=== PATIENT | female | born 1940 | race Caucasian/White ===

== ENCOUNTER → 2017-05-11 | Outpatient (CLI) | payer OTHER, BC ==
--- NOTE | 2017-05-12 16:42 | MRI ---
HISTORY: Lumbar radiculopathy Study: MRI lumbar spine without contrast Comparison: MRI 01/26/2015 Findings: There is chronic roto dextroscoliosis of the lumbar spine which limits evaluation. There is multileve l spondylosis and degenerative disc disease present. There is grade 1 anterolisthesis of L5 on S1. Th ere is multilevel facet arthropathy present. There is [id number] foraminal narrowing suspected at L1-L2 and L2-3 on the right and moderate foraminal stenosis on the left at L5-S1 There is no evide nce of abnormal cord or marrow signal. No edema or evidence of fracture. The conus terminates normall y. Incidental note is made of a large hiatal hernia. IMPRESSION: 1. Chronic rotoscoliosis and multilevel spondylosis. No acute osseous abnormality is identified. Reported By:
== END | disposition home or self-care (01) ==
LOC: RAD 12:50
PROVIDERS: ATTEND Internal Medicine
DX: M51.16 Intervertebral disc disorders with radiculopathy, lumbar region (principal); M47.896 Other spondylosis, lumbar region; M41.86 Other forms of scoliosis, lumbar region
CPT/HCPCS: 72148

== ENCOUNTER 2022-05-15 13:27 | Observation (INO) ==
--- NOTE | 2022-05-15 13:32 | DR.AMS ---
HPI Time Seen Time Seen by Provider: 05/15/22 13:32 Complaint Cheif Complaint Doctors Comments: 82 y/o female brought in by her spouse. Having decreasing po intake, increasing weakness, going on for the past several weeks. Spouse has been taking care of the pt, has to lift her, move her. Pt recently non ambulatory. Not taking much by mouth. No report of fever, chills, cough, congestion, vomiting or diarrhea. Urine with strong odor. PT not offering complaints. Reviewed Nurses Notes Reviewed: Yes Source History Provided: Significant Other Mode of Arrival Mode of Arrival: Wheelchair PMH PMH Past Medical History: Yes Past Medical History: Anemia Past Medical History Comment: CVA, HTN, dyslipidemia, GERD, hiatal hernia, hypothyroidism Surgical History: Unknown Social History Does patient currently use any type of tobacco product: No Alcohol Use: None Do you use any recreational Drugs:: No ROS Review of Systems Constitutional: Malaise and Weakness Eyes: No Symptoms Reported ENTM: No Symptoms Reported Respiratoy: No Symptoms Reported Cardiovascular: No Symptoms Reported Gastrointestinal/Abdominal: No Symptoms Reported Genitourinary: No Symptoms Reported Neurological: No Symptoms Reported Musculoskeletal: No Symptoms Reported Integumentary: No Symptoms Reported Hematologic/Lymphatic: No Symptoms Reported Psychiatric: No Symptoms Reported All Other Systems: Reviewed and Negative PE Vitals Vital Signs: Temp Pulse Resp BP Pulse Ox O2 Del Method 05/15/22 15:45 158 H 41 H 05/15/22 15:31 194/119 05/15/22 15:31 114 H 27 H 05/15/22 15:30 114 H 22 05/15/22 15:15 115 H 13 05/15/22 15:00 154/76 05/15/22 15:00 95 H 19 05/15/22 14:45 153 H 25 H 05/15/22 14:31 152 H 17 05/15/22 14:30 109 H 20 05/15/22 14:15 19 05/15/22 14:30 97 H 16 131/93 99 Room Air 05/15/22 14:00 111 H 28 H 05/15/22 14:00 131/93 05/15/22 13:45 100 H 20 05/15/22 13:35 94 H 21 98 05/15/22 13:33 98.7 F 93 H 24 152/64 98 General General Appearance: Cachectic and Other (+ generalized weakness) Eyes Eye exam: PERRL and EOMI Neck Neck Exam: Normal Inspection Respiratory Respiratory Exam: Normal Lung Sounds Bilat; negative Accessory Muscle Use or Respiratory Distress Cardiovascular Cardiovascular Exam: Regular Rate, Normal Rhythm and Normal Heart Sounds Abdominal Exam Abdominal Exam: Normal Bowel Sounds and Soft; negative Tenderness Neurological Neurological Exam: Other (+ weakness of all exts. No focal deficits. Verbal for nurses, not verbal for MD. ) COURSE Treatment Treatment: 82 y/o female brought in by spouse for evaluation. Very cachectic, has not been eating , drinking. + strong odor of urine. W/u initiated. Pt given IV fluids. 1554 - Na elevated, 149, as well as BUN, both c/w dehydration. U/A cloudy, 2+ ketones, 4+ bld (was a cath specimen), 1+ kemar est, 10-20 RBCs, only 0-2 WBCs, with 4+ bacteria. Will cover with Rocephin for possible UTI, will recommend admission for continued IV hydration for probable dehydration. Discussed with Dr Vides, will admit. ROR Labs Reviewed Laboratory Results Reviewed?: Yes Result Diagrams: 05/15/22 13:50 05/15/22 13:50 Laboratory: WBC 12.1 X10^3/uL (3.6-10.0) H 05/15/22 13:50 RBC 4.13 X10^6/uL (3.5-5.4) 05/15/22 13:50 Hgb 13.4 g/dL (12.0-16.0) 05/15/22 13:50 Hct 39.9 % (36.0-47.0) 05/15/22 13:50 MCV 96.4 fL (80.0-100.0) 05/15/22 13:50 MCH 32.4 pg (27.0-34.0) 05/15/22 13:50 MCHC 33.7 g/dL (33.0-35.0) 05/15/22 13:50 RDW 14.0 % (11.6-16.5) 05/15/22 13:50 Plt Count 199 X10^3/uL (150.0-450.0) 05/15/22 13:50 MPV 7.7 fL (7.4-11.0) 05/15/22 13:50 Neut % (Auto) 82.2 % (42.0-75.0) H 05/15/22 13:50 Lymph % (Auto) 9.1 % (21.0-51.0) L 05/15/22 13:50 [place] % (Auto) 8.3 % (0.0-13.0) 05/15/22 13:50 Eos % (Auto) 0.0 % (0.9-2.9) L 05/15/22 13:50 Baso % (Auto) 0.4 % (0.2-1.0) 05/15/22 13:50 Neut # (Auto) 9.9 x10^3/uL (2.2-4.8) H 05/15/22 13:50 Lymph # (Auto) 1.1 X10^3/uL (1.3-2.9) L 05/15/22 13:50 [place] # (Auto) 1.0 x10^3/uL (0.3-0.8) H 05/15/22 13:50 Eos # (Auto) 0.0 x10^3/uL (0.0-0.2) 05/15/22 13:50 Baso # (Auto) 0.0 X10^3/uL (0.0-0.1) 05/15/22 13:50 Absolute Nucleated RBC 0.0 /100WBC 05/15/22 13:50 Sodium 149 mmol/L (136-145) H 05/15/22 13:50 Corrected Sodium 149 mmol/L (136-145) H 05/15/22 13:50 Potassium 3.5 mmol/L (3.5-5.1) 05/15/22 13:50 Chloride 110 mmol/L (98-107) H 05/15/22 13:50 Carbon Dioxide 30.3 mmol/L (21-32) 05/15/22 13:50 BUN 44 mg/dL (7-18) H 05/15/22 13:50 Creatinine 0.97 mg/dL (0.55-1.02) 05/15/22 13:50 Est GFR (MDRD) Af Amer > 60 (>60) 05/15/22 13:50 Est GFR (MDRD) Non-Af 58 (>60) L 05/15/22 13:50 Glucose 120 mg/dL (65-99) H 05/15/22 13:50 Calcium 9.6 mg/dL (8.5-10.1) 05/15/22 13:50 Corrected Calcium TNP 05/15/22 13:50 Total Bilirubin 0.80 mg/dL (0.2-1.0) 05/15/22 13:50 AST 84 Units/L (15-37) H 05/15/22 13:50 ALT 63 Units/L (12-78) 05/15/22 13:50 Alkaline Phosphatase 98 Units/L (46-116) 05/15/22 13:50 Troponin I High Sens 55.4 ng/L (4.0-60.0) 05/15/22 13:50 Total Protein 7.1 g/dL (6.4-8.2) 05/15/22 13:50 Albumin 3.6 g/dL (3.4-5.0) 05/15/22 13:50 Globulin 3.5 g/dL (2.5-4.5) 05/15/22 13:50 Albumin/Globulin Ratio 1.0 Ratio (1.1-2.1) L 05/15/22 13:50 Lipase 101 Units/L (73-393) 05/15/22 13:50 Specimen Type Catherized urine 05/15/22 14:07 Urine Color Yellow (YELLOW) 05/15/22 14:07 Urine Appearance Cloudy (CLEAR) 05/15/22 14:07 Urine pH 6.0 (5.0 - 8.0) 05/15/22 14:07 Ur Specific [place] 1.030 (1.000-1.030) 05/15/22 14:07 Urine Protein 2+ (NEGATIVE) 05/15/22 14:07 Urine Glucose (UA) Negative (NEGATIVE) 05/15/22 14:07 Urine Ketones 2+ (NEGATIVE) 05/15/22 14:07 Urine Blood 4+ (NEGATIVE) 05/15/22 14:07 Urine Nitrite Negative (NEGATIVE) 05/15/22 14:07 Urine Bilirubin Negative (NEGATIVE) 05/15/22 14:07 Urine Urobilinogen 1+ (NORMAL) 05/15/22 14:07 Ur Leukocyte Esterase 1+ (NEGATIVE) 05/15/22 14:07 Urine RBC 10-20 /HPF (0-3) A 05/15/22 14:07 Urine WBC 0-2 /HPF (0-5) 05/15/22 14:07 Ur Squamous Epith Cells Negative /HPF (NEGATIVE) 05/15/22 14:07 Urine Bacteria 4+ /HPF (NEGATIVE) 05/15/22 14:07 Ur Culture Indicated? Yes/culture set up 05/15/22 14:07 Elevated Na, BUN c/w dehydration. U/A without leukocytes, but concerning for UTI. Opioid Opioid Risk Tool Total: 0 Total Score Risk Category: Low Risk Copyright: [facility] predicting aberrant behaviors Discharge Plan Diagnosis Discharge Problem: Volume depletion, Failure to thrive, Acute UTI Discharge Plan Patient Disposition: ADMITTED INPATIENT Condition: Stable Prescriptions: No Action meloxicam 15 mg tablet 15 mg PO QDAY omeprazole 40 mg capsule,delayed release(DR/EC) 40 mg PO QDAY levothyroxine 125 mcg tablet 125 mcg PO QDAY lisinopril-hydrochlorothiazide 20-25 mg tablet 1 tab PO QDAY folic acid 1 mg tablet 1 mg PO QDAY ergocalciferol (vitamin D2) 1,250 mcg (50,000 unit) capsule 1,250 mcg PO DAILY rosuvastatin 10 mg tablet 10 mg PO QPM aliskiren 150 mg tablet 150 mg PO QDAY PRN Hemocyte-Plus 106 mg iron- 1 mg capsule 1 cap PO QDAY Health Concerns: Post Hospitalization: new medications and changes needed to prevent readmission or further decline. Pt educated and given instructions on all concerns. Plan of Treatment: Continue with present treatment and follow up plan. Pt is to keep follow up appointment as instructed and take medications as ordered. Orders to Discharge Patient Discharge Orders: Transfer (Routine); Ordered 05/15/22 Ordered By: Rogelio Bridges Follow ups/Referrals Follow ups/Referrals: Arnaldo Vides [Primary Care Provider] - 3 days
[2022-05-15] MEDS ORDERED: NS 500 ML IV 500 ML IV ONE ×2 (13:33→13:38)
[2022-05-15 14:20] LABS: BILIRUBIN,URINE NEGATIVE (NEGATIVE); BLOOD/HEMOGLOBIN,URINE 4+ (NEGATIVE); GLUCOSE, URINE NEGATIVE (NEGATIVE); KETONES,URINE 2+ (NEGATIVE); LEUKOCYTE ESTERASE ,URINE 1+ (NEGATIVE); NITRITES,URINE NEGATIVE (NEGATIVE); PROTEIN,URINE 2+ (NEGATIVE); UROBILINOGEN,URINE 1+ (NORMAL)
[2022-05-15 14:36] LABS: APPEARANCE,URINE CLOUDY (CLEAR); COLOR,URINE YELLOW (YELLOW)
[2022-05-15 14:37] LABS: BACTERIA,URINE 4+ /HPF (NEGATIVE); SQUAMOUS EPITHELIAL CELL,UR NEGATIVE /HPF (NEGATIVE)
[2022-05-15 14:41] LABS: BASOPHILS % (AUTO) 0.4 % (0.2-1.0); HEMATOCRIT 39.9 % (36.0-47.0); HEMOGLOBIN 13.4 g/dL (12.0-16.0); LYMPHOCYTES # (AUTO) 1.1 X10^3/uL (1.3-2.9); LYMPHOCYTES % (AUTO) 9.1 % (21.0-51.0); MEAN CORPUSCULAR HEMOGLOBIN 32.4 pg (27.0-34.0); MEAN CORPUSCULAR HGB CONC 33.7 g/dL (33.0-35.0); MEAN CORPUSCULAR VOLUME 96.4 fL (80.0-100.0); MEAN PLATELET VOLUME 7.7 fL (7.4-11.0); MONOCYTES % (AUTO) 8.3 % (0.0-13.0); NEUTROPHILS # (AUTO) 9.9 x10^3/uL (2.2-4.8); NEUTROPHILS % (AUTO) 82.2 % (42.0-75.0); RED BLOOD COUNT 4.13 X10^6/uL (3.5-5.4); WHITE BLOOD COUNT 12.1 X10^3/uL (3.6-10.0)
[2022-05-15 15:00] LABS: ALANINE AMINOTRANSFERASE 63 Units/L (12-78); ALBUMIN 3.6 g/dL (3.4-5.0); ALKALINE PHOSPHATASE 98 Units/L (46-116); ASPARTATE AMINO TRANSFERASE 84 Units/L (15-37); BLOOD UREA NITROGEN 44 mg/dL (7-18); CALCIUM 9.6 mg/dL (8.5-10.1); CARBON DIOXIDE 30.3 mmol/L (21-32); CHLORIDE 110 mmol/L (98-107); COR NA(FOR HYPERGLY) 149 mmol/L (136-145); CREATININE 0.97 mg/dL (0.55-1.02); LIPASE 101 Units/L (73-393); SODIUM 149 mmol/L (136-145); TOTAL PROTEIN 7.1 g/dL (6.4-8.2); eGFR NON BLACK RACES 58 (>60)
--- NOTE | 2022-05-15 16:32 | RAD ---
CHEST, 1 VIEWHISTORY: FAILURE TO THRIVE, WEAKNESSStudy: AP view of the chest.Comparison:NoneFindings:The cardiomediastinal silhouette is normal. No focal consolidations, pleural effusions or pneumothorax. Large hiatal hernia. Bilateral hyperexpansion and interstitial prominence.IMPRESSION:1. No acute cardiopulmonary process.2. Findings of COPD.Electronically signed by: ARIK MAC (May 15, 2022 16:30:20)
[2022-05-15] MEDS ORDERED: D5 1/2 NS 1,000 ML 1,000 ML IV SCH (17:41)
[2022-05-15] MEDS: ROCEPHIN VIAL 1 GRAM 1 G in NS 100 ML IV 100 ML IV SCH (18:49)
[2022-05-15] MEDS ORDERED: KLOR-CON PO PRN (22:15)
[2022-05-15] MEDS ORDERED: K-DUR TAB 20 MEQ PO PRN (22:15)
[2022-05-15] MEDS ORDERED: MICRO K EXTEN CAP 10 MEQ PO PRN (22:15)
[2022-05-15] MEDS ORDERED: POTASSIUM CHLORIDE LIQ 20 MEQ UDC PO PRN (22:15)
[2022-05-16 06:25] LABS: BASOPHILS % (AUTO) 0.2 % (0.2-1.0); EOSINOPHILS % (AUTO) 0.5 % (0.9-2.9); HEMATOCRIT 33.9 % (36.0-47.0); HEMOGLOBIN 11.6 g/dL (12.0-16.0); LYMPHOCYTES # (AUTO) 1.5 X10^3/uL (1.3-2.9); LYMPHOCYTES % (AUTO) 16.3 % (21.0-51.0); MEAN CORPUSCULAR HEMOGLOBIN 32.9 pg (27.0-34.0); MEAN CORPUSCULAR HGB CONC 34.2 g/dL (33.0-35.0); MEAN PLATELET VOLUME 7.3 fL (7.4-11.0); MONOCYTES % (AUTO) 10.5 % (0.0-13.0); NEUTROPHILS # (AUTO) 6.8 x10^3/uL (2.2-4.8); NEUTROPHILS % (AUTO) 72.5 % (42.0-75.0); RED BLOOD COUNT 3.53 X10^6/uL (3.5-5.4); RED CELL DISTRIBUTION WIDTH 13.6 % (11.6-16.5); WHITE BLOOD COUNT 9.3 X10^3/uL (3.6-10.0)
[2022-05-16 06:27] LABS: ALANINE AMINOTRANSFERASE 60 Units/L (12-78); ALBUMIN 2.8 g/dL (3.4-5.0); ALKALINE PHOSPHATASE 79 Units/L (46-116); ASPARTATE AMINO TRANSFERASE 71 Units/L (15-37); BLOOD UREA NITROGEN 32 mg/dL (7-18); CALCIUM 8.6 mg/dL (8.5-10.1); CARBON DIOXIDE 30.3 mmol/L (21-32); CHLORIDE 113 mmol/L (98-107); COR CA(FOR HYPOALB) 9.6 mg/dL (8.5-10.1); COR NA(FOR HYPERGLY) 150 mmol/L (136-145); SODIUM 149 mmol/L (136-145); TOTAL PROTEIN 5.7 g/dL (6.4-8.2); eGFR NON BLACK RACES > 60 (>60)
[2022-05-16 06:54] LABS: MAGNESIUM 1.9 mg/dL (1.7-2.9)
[2022-05-16] MEDS ORDERED: VITAMIN D (1.25MG) PO SCH (09:00)
[2022-05-16] MEDS: HEMOCYTE-PLUS PO SCH (10:03)
[2022-05-16] MEDS: PriLOSEC PO SCH (10:03)
[2022-05-16] MEDS: ZESTORETIC 20/25 MG PO SCH ×2 (10:04→10:21)
[2022-05-16] MEDS: FOLIC ACID TAB 1 MG PO SCH (10:04)
[2022-05-16] MEDS: SYNTHROID 125 mcg TAB PO SCH (10:04)
[2022-05-16] MEDS: MOBIC TAB 15 MG PO SCH (10:04)
[2022-05-16] MEDS: D5W 1,000 ML IV 1,000 ML IV SCH ×2 (10:20→22:41)
[2022-05-16] MEDS: ROCEPHIN VIAL 1 GRAM 1 G in NS 100 ML IV 100 ML IV SCH (10:20)
[2022-05-16] MEDS: TEKTURNA PO SCH ×2 (10:48→11:23)
[2022-05-16] MEDS: ALBUMIN HUMAN 25%- 100 ML 100 ML IV SCH (12:00)
--- NOTE | 2022-05-16 13:29 | DR.H&P ---
H&P - History & Physical for Day of: H&P Date: 05/15/22 - Chief Complaint Chief Complaint: AMS, WEAKNESS, WEAKNESS, DECREASED ORAL INTAKE - History of Present Illness History of Present Illness: IS A 82 YEAR OLD PATIENT OF OURS. SHE PRESENTED TO THE ER WITH HER SPOUSE REPORTING THAT SHE HAS HAD DECREASED ORAL INTAKE, INCREASING WEAKNESS, AND ALTERED MENTAL STATUS. SYMPTOMS STARTED SEVERAL WEEKS AGO. HER SPOUSE REPORTS THAT SHE HAS RECENTLY BECAME NON-AMBULATORY. HE REPORTS THAT HE HAS BEEN HAVING TO LIFT AND CARE FOR HER AT HOME. HE REPORTS THAT HER URINE HAS HAD A STRONG ODOR. THERE ARE NO REPORTS OF FEVER, CHILLS, COUGH, CONGESTION, VOMITING, OR DIARRHEA. ON EXAMINATION, PATIENT WAS DIFFICULT TO AROUSE. HER VITALS WERE: 98.7-93-24-98%-152/64. LABS WERE OBTAINED. WBC 12.1, RBC4.13,HGB 13.4, HCT 39.9, SODIUM 149, POTASSIUM 3.5, CHLORIDE 110, BUN 44, CREATININE 0.97, BUN 44, CREATININE 0.97, GLUCOSE 120, CALCIUM 9.6, AST 84, ALT 63, ALK PHOS 98, TROPONIN 7.1, ALBUMIN 3.6. URINALYSIS WAS OBTAINED. WBC 0-2, RBC 10-20, BACTERIA 4+, LEUKOCYTES 1+, URINE BLOOD 4+, KETONES 2+, PROTEIN 2+. A CHEST XRAY WAS OBTAINED AND REVEALED: 1. No acute cardiopulmonary process. 2. Findings of COPD. IN THE ER, SHE WAS GIVEN A NORMAL SALINE BOLUS. SHE WAS ADMITTED TO THE HOSPITAL FOR FURTHER EVALUATION AND TREATMENT OF VOLUME DEPLETION, PROTEIN-CALORIE MALNUTRITION, UTI, HYPERNATREMIA, HYPOALBUMINEMIA, AND FAILURE TO THRIVE. SHE WAS STARTED ON D5W AT 80 ML/HR, ROCEPHIN 1G IV DAILY, ALBUMIN 25% IV DAILY, THE POTASSIUM AND MAGNESIUM PROTOCOLS, AND HER HOME MEDICATIONS WERE RESUMED. OTHERWISE, WE PLAN TO FOLLOW-UP WITH AM LABS AND CONTINUE TO MONITOR. TIME SPENT ON CLINICAL ASSESSMENT, REVIEWING LABS AND IMAGING, DECISION MAKING, AND DOCUMENTATION GREATER THAN 75 MINUTES. - Past Medical History Past Medical History: Anemia, Anxiety, CVA, Depression, Dyslipidemia, GERD, Hypertension, Hypothyroidism - Past Surgical History Surgical History: Unknown - Social History Does patient currently use any type of tobacco product: No Have you used tobacco products in the last 12 months: No Type of Tobacco Use: None Does any household member use tobacco: No Alcohol Use: None - Medications Home Medications: No Known Drug Allergies Allergy (Verified 05/15/22 14:09) CONTINUE taking the following medications aliskiren 150 mg tablet 150 mg PO QDAY PRN 05/15/22 [History] ergocalciferol (vitamin D2) 1,250 mcg (50,000 unit) capsule 1,250 mcg PO DAILY 05/15/22 [History] folic acid 1 mg tablet 1 mg PO QDAY 05/15/22 [History] iron-folic acid-multivitamin, mineral comb#15 106 mg iron-1 mg capsule (Hemocyte-Plus) 1 cap PO QDAY 05/15/22 [History] levothyroxine 125 mcg tablet 125 mcg PO QDAY 05/15/22 [History] lisinopril 20 mg-hydrochlorothiazide 25 mg tablet 1 tab PO QDAY 05/15/22 [History] meloxicam 15 mg tablet 15 mg PO QDAY 05/15/22 [History] omeprazole 40 mg capsule,delayed release 40 mg PO QDAY 05/15/22 [History] rosuvastatin 10 mg tablet 10 mg PO QPM 05/15/22 [History] - Review of Systems Constitutional: Weakness Eyes: No Symptoms Reported ENT: No Symptoms Reported Respiratory: No Symptoms Reported Cardiovascular: No Symptoms Reported Gastrointestinal: No Symptoms Reported Genitourinary: Other (FOUL ODOR OF URINE ) Musculoskeletal: No Symptoms Reported Skin: No Symptoms Reported Neurological: Weakness, Confusion - Physical Exam Vital Signs: Temperature 98.1 F Pulse Rate [Right Radial] 76 Pulse Rate 112 Respiratory Rate 18 Blood Pressure [Right Arm] 162/79 Blood Pressure 93/73 O2 Sat by Pulse Oximetry 97 Oriented: Unable to test Eyes: Normal Ear: Normal Nose: Normal Throat: Normal Respiratory: Diminished Throughout Cardiovascular: Normal : Hematuria Auscultation: Bowel Sounds: Normal Palpation: Normal Tenderness: Normal Skin: Decreased Turgur Musculoskeletal: Normal Psychiatric: Other (LETHARGIC) Mood Description: Calm Affect: Flat - Assessment/Plan (1) Hypernatremia Status: Acute Plan: ADMIT, D5W AT 80 ML/HR, ROCEPHIN 1G IV DAILY, ALBUMIN 25% IV DAILY, THE POTASSIUM AND MAGNESIUM PROTOCOLS, AND HER HOME MEDICATIONS WERE RESUMED. (2) Protein calorie malnutrition Qualifiers: Protein-calorie malnutrition severity: mild Qualified Code(s): E44.1 - Mild protein-calorie malnutrition Status: Acute (3) Acute UTI Status: Acute (4) Volume depletion Status: Acute (5) Hypoalbuminemia Status: Acute (6) Failure to thrive Qualifiers: Failure to thrive age range: in adult Qualified Code(s): R62.7 - Adult failure to thrive Status: Acute - Allergies Allergies/Adverse Reactions: Allergies Allergy/AdvReac Type Severity Reaction Status Date / Time No Known Drug Allergies Allergy Verified 05/15/22 14:09
[2022-05-16] MEDS: MAGNESIUM SULFATE 1 GRAM/100 mL PREMIX 1 G/100 ML BAG IV PRN ×2 (17:31→20:35)
[2022-05-16] MEDS: CRESTOR TAB 10 MG PO SCH (20:34)
[2022-05-17 06:32] LABS: BASOPHILS % (AUTO) 0.2 % (0.2-1.0); EOSINOPHILS # (AUTO) 0.1 x10^3/uL (0.0-0.2); EOSINOPHILS % (AUTO) 1.9 % (0.9-2.9); HEMOGLOBIN 11.2 g/dL (12.0-16.0); LYMPHOCYTES # (AUTO) 1.4 X10^3/uL (1.3-2.9); MEAN CORPUSCULAR HEMOGLOBIN 33.2 pg (27.0-34.0); MEAN CORPUSCULAR VOLUME 94.9 fL (80.0-100.0); MEAN PLATELET VOLUME 7.7 fL (7.4-11.0); MONOCYTES # (AUTO) 0.7 x10^3/uL (0.3-0.8); MONOCYTES % (AUTO) 9.2 % (0.0-13.0); NEUTROPHILS # (AUTO) 4.9 x10^3/uL (2.2-4.8); NEUTROPHILS % (AUTO) 68.7 % (42.0-75.0); RED BLOOD COUNT 3.37 X10^6/uL (3.5-5.4); RED CELL DISTRIBUTION WIDTH 13.4 % (11.6-16.5); WHITE BLOOD COUNT 7.1 X10^3/uL (3.6-10.0)
[2022-05-17 06:43] LABS: ALANINE AMINOTRANSFERASE 51 Units/L (12-78); ALKALINE PHOSPHATASE 68 Units/L (46-116); ASPARTATE AMINO TRANSFERASE 50 Units/L (15-37); BLOOD UREA NITROGEN 12 mg/dL (7-18); CALCIUM 8.4 mg/dL (8.5-10.1); CARBON DIOXIDE 30.8 mmol/L (21-32); CHLORIDE 104 mmol/L (98-107); COR CA(FOR HYPOALB) 9.2 mg/dL (8.5-10.1); COR NA(FOR HYPERGLY) 140 mmol/L (136-145); CREATININE 0.69 mg/dL (0.55-1.02); SODIUM 139 mmol/L (136-145); TOTAL PROTEIN 5.5 g/dL (6.4-8.2); eGFR NON BLACK RACES > 60 (>60)
[2022-05-17 06:51] LABS: MAGNESIUM 2.4 mg/dL (1.7-2.9)
[2022-05-17 08:31] VITALS: BMI 15.0
[2022-05-17] MEDS: ALBUMIN HUMAN 25%- 100 ML 100 ML IV SCH (08:48)
[2022-05-17] MEDS: PriLOSEC PO SCH (08:49)
[2022-05-17] MEDS: ZESTORETIC 20/25 MG PO SCH (08:49)
[2022-05-17] MEDS: SYNTHROID 125 mcg TAB PO SCH (08:49)
[2022-05-17] MEDS: MOBIC TAB 15 MG PO SCH (08:49)
[2022-05-17] MEDS: FOLIC ACID TAB 1 MG PO SCH (08:49)
[2022-05-17] MEDS: HEMOCYTE-PLUS PO SCH (08:50)
[2022-05-17] MEDS: TEKTURNA PO SCH (09:13)
[2022-05-17] MEDS: ROCEPHIN VIAL 1 GRAM 1 G in NS 100 ML IV 100 ML IV SCH (10:06)
[2022-05-17] MEDS: K-RIDER 10 MEQ/NS 100 ML 10 MEQ/100 ML BAG IV PRN ×6 (10:50→17:24)
[2022-05-17] MEDS: D5W 1,000 ML IV 1,000 ML IV SCH (20:09)
[2022-05-17] MEDS: CRESTOR TAB 10 MG PO SCH (21:36)
--- NOTE | 2022-05-17 22:49 | PCM.PROG ---
Progress Note - Progress Note for Day of Date of Exam: 05/17/22 - Subjective Subjective: WAS ADMITTED TO THE HOSPITAL FOR TREATMENT OF VOLUME DEPLETION, PROTEIN-CALORIE MALNUTRITION, UTI, HYPERNATREMIA, HYPOALBUMINEMIA, AND FAILURE TO THRIVE. TODAY, SHE IS LYING IN BED WITH EYES CLOSED ON MORNING ROUNDS. SHE AWAKENS TO TACTILE STIMULATION. PATIENT IS DISORIENTED, BUT SPEAKS WHEN SPOKEN TO. ON EXAMINATION, HEART IS REGULAR IN RATE AND RHYTHM. BILATERAL LUNGS ARE NOTED WITH DIMINISHED LUNG SOUNDS THROUGHOUT. ABDOMEN IS FLAT, SOFT, AND NON-TENDER WITH NORMAL BOWEL SOUNDS NOTED IN ALL QUADRANTS. GENERALIZED MUSCLE ATROPHY NOTED. HER VITALS THIS MORNING ARE: 97.2-58-18-98%-128/60. LABS WERE OBTAINED. WBC 7.1, RBC 3.37, HGB 11.2, HCT 32.0, PLT COUNT 141, SODIUM 139, POTASSIUM 3.0, BUN 12, CREATININE 0.69, GLUCOSE 121, CALCIUM 8.4, MAGNESIUM 2.4, AST 50, ALT 51, ALK PHOS 68, TOTAL PROTEIN 5.5, ALBUMIN 3.0. URINE CULTURE IS POSITIVE FOR GROWTH OF E.COLI. SHE IS CURRENTLY RECEIVING D5W AT 80 ML/HR, ROCEPHIN 1G IV DAILY, ALBUMIN 25% IV DAILY, THE POTASSIUM AND MAGNESIUM PROTOCOLS, AND HER HOME MEDICATIONS WERE RESUMED. OTHERWISE, WE PLAN TO FOLLOW- UP WITH AM LABS AND CONTINUE TO MONITOR. TIME SPENT ON CLINICAL ASSESSMENT, REVIEWING LABS AND IMAGING, DECISION MAKING, AND DOCUMENTATION GREATER THAN 45 MINUTES. - Past Medical Family Social History Past Med/Fam/Surg Hx: No changes since H&P Allergies: Allergies No Known Drug Allergies Allergy (Verified 05/15/22 14:09) - Review of Systems ROS: No change since H&P - Vital Signs and I&O's Vital Signs: Temperature 98.3 F Pulse Rate [Right Radial] 100 Pulse Rate 112 Respiratory Rate 20 Blood Pressure [Right Arm] 174/77 Blood Pressure 93/73 O2 Sat by Pulse Oximetry 94 Intake and Output: Intake & Output 05/15/22 05/16/22 05/17/22 05/18/22 11:59 11:59 11:59 11:59 Intake Total 1047 / 1047 2185 / 2185 1200 / 1200 Output Total 100 / 100 1875 / 1875 1300 / 1300 Balance 947 / 947 310 / 310 -100 / -100 - Physical Exam Oriented: Person Eyes: Normal Ear: Normal Nose: Normal Throat: Normal Respiratory: Generalized, Diminished Cardiovascular: Normal : Hematuria Auscultation: Bowel Sounds: Normal Palpation: Normal Tenderness: Normal Skin: Decreased Turgur Musculoskeletal: Normal Psychiatric: Normal Mood Description: Calm Affect: Flat Speech Pattern: Clear - Laboratory and Diagnostics Result Diagrams: 05/17/22 06:00 05/17/22 06:00 Labs: 05/15/22 14:07 Urine,Catheterized Urine Culture - Final Escherichia Coli Laboratory WBC 7.1 X10^3/uL (3.6-10.0) 05/17/22 06:00 RBC 3.37 X10^6/uL (3.5-5.4) L 05/17/22 06:00 Hgb 11.2 g/dL (12.0-16.0) L 05/17/22 06:00 Hct 32.0 % (36.0-47.0) L 05/17/22 06:00 MCV 94.9 fL (80.0-100.0) 05/17/22 06:00 MCH 33.2 pg (27.0-34.0) 05/17/22 06:00 MCHC 35.0 g/dL (33.0-35.0) 05/17/22 06:00 RDW 13.4 % (11.6-16.5) 05/17/22 06:00 Plt Count 141 X10^3/uL (150.0-450.0) L 05/17/22 06:00 MPV 7.7 fL (7.4-11.0) 05/17/22 06:00 Neut % (Auto) 68.7 % (42.0-75.0) 05/17/22 06:00 Lymph % (Auto) 20.0 % (21.0-51.0) L 05/17/22 06:00 [place] % (Auto) 9.2 % (0.0-13.0) 05/17/22 06:00 Eos % (Auto) 1.9 % (0.9-2.9) 05/17/22 06:00 Baso % (Auto) 0.2 % (0.2-1.0) 05/17/22 06:00 Neut # (Auto) 4.9 x10^3/uL (2.2-4.8) H 05/17/22 06:00 Lymph # (Auto) 1.4 X10^3/uL (1.3-2.9) 05/17/22 06:00 [place] # (Auto) 0.7 x10^3/uL (0.3-0.8) 05/17/22 06:00 Eos # (Auto) 0.1 x10^3/uL (0.0-0.2) 05/17/22 06:00 Baso # (Auto) 0.0 X10^3/uL (0.0-0.1) 05/17/22 06:00 Absolute Nucleated RBC 0.0 /100WBC 05/17/22 06:00 Sodium 139 mmol/L (136-145) 05/17/22 06:00 Corrected Sodium 140 mmol/L (136-145) 05/17/22 06:00 Potassium 3.0 mmol/L (3.5-5.1) L 05/17/22 06:00 Chloride 104 mmol/L (98-107) 05/17/22 06:00 Carbon Dioxide 30.8 mmol/L (21-32) 05/17/22 06:00 BUN 12 mg/dL (7-18) 05/17/22 06:00 Creatinine 0.69 mg/dL (0.55-1.02) 05/17/22 06:00 Est GFR (MDRD) Af Amer > 60 (>60) 05/17/22 06:00 Est GFR (MDRD) Non-Af > 60 (>60) 05/17/22 06:00 Glucose 121 mg/dL (65-99) H 05/17/22 06:00 POC Glucose (mg/dL) 135 mg/dL (65-99) H 05/17/22 21:43 Calcium 8.4 mg/dL (8.5-10.1) L 05/17/22 06:00 Corrected Calcium 9.2 mg/dL (8.5-10.1) 05/17/22 06:00 Magnesium 2.4 mg/dL (1.7-2.9) 05/17/22 06:00 Total Bilirubin 0.60 mg/dL (0.2-1.0) 05/17/22 06:00 AST 50 Units/L (15-37) H 05/17/22 06:00 ALT 51 Units/L (12-78) 05/17/22 06:00 Alkaline Phosphatase 68 Units/L (46-116) 05/17/22 06:00 Troponin I High Sens 58.7 ng/L (4.0-60.0) 05/16/22 05:55 Total Protein 5.5 g/dL (6.4-8.2) L 05/17/22 06:00 Albumin 3.0 g/dL (3.4-5.0) L 05/17/22 06:00 Globulin 2.5 g/dL (2.5-4.5) 05/17/22 06:00 Albumin/Globulin Ratio 1.2 Ratio (1.1-2.1) 05/17/22 06:00 Lipase 101 Units/L (73-393) 05/15/22 13:50 Specimen Type Catherized urine 05/15/22 14:07 Urine Color Yellow (YELLOW) 05/15/22 14:07 Urine Appearance Cloudy (CLEAR) 05/15/22 14:07 Urine pH 6.0 (5.0 - 8.0) 05/15/22 14:07 Ur Specific [place] 1.030 (1.000-1.030) 05/15/22 14:07 Urine Protein 2+ (NEGATIVE) 05/15/22 14:07 Urine Glucose (UA) Negative (NEGATIVE) 05/15/22 14:07 Urine Ketones 2+ (NEGATIVE) 05/15/22 14:07 Urine Blood 4+ (NEGATIVE) 05/15/22 14:07 Urine Nitrite Negative (NEGATIVE) 05/15/22 14:07 Urine Bilirubin Negative (NEGATIVE) 05/15/22 14:07 Urine Urobilinogen 1+ (NORMAL) 05/15/22 14:07 Ur Leukocyte Esterase 1+ (NEGATIVE) 05/15/22 14:07 Urine RBC 10-20 /HPF (0-3) A 05/15/22 14:07 Urine WBC 0-2 /HPF (0-5) 05/15/22 14:07 Ur Squamous Epith Cells Negative /HPF (NEGATIVE) 05/15/22 14:07 Urine Bacteria 4+ /HPF (NEGATIVE) 05/15/22 14:07 Ur Culture Indicated? Yes/culture set up 05/15/22 14:07 - Plan (1) Hypernatremia Status: Acute Plan: D5W AT 80 ML/HR, ROCEPHIN 1G IV DAILY, ALBUMIN 25% IV DAILY, THE PO TASSIUM AND MAGNESIUM PROTOCOLS, AND HER HOME MEDICATIONS WERE RESUMED. (2) Protein calorie malnutrition Status: Acute Qualifiers: Protein-calorie malnutrition severity: mild Qualified Code(s): E44.1 - Mild protein-calorie malnutrition (3) Acute UTI Status: Acute (4) Volume depletion Status: Acute (5) Hypoalbuminemia Status: Acute (6) Failure to thrive Status: Acute Qualifiers: Failure to thrive age range: in adult Qualified Code(s): R62.7 - Adult failure to thrive
[2022-05-18] MEDS: D5W 1,000 ML IV 1,000 ML IV SCH ×4 (03:16→20:36)
[2022-05-18 03:48] LABS: BASOPHILS # (AUTO) 0.1 X10^3/uL (0.0-0.1); BASOPHILS % (AUTO) 0.9 % (0.2-1.0); EOSINOPHILS # (AUTO) 0.1 x10^3/uL (0.0-0.2); EOSINOPHILS % (AUTO) 1.6 % (0.9-2.9); HEMATOCRIT 36.9 % (36.0-47.0); HEMOGLOBIN 12.4 g/dL (12.0-16.0); LYMPHOCYTES % (AUTO) 22.3 % (21.0-51.0); MEAN CORPUSCULAR HEMOGLOBIN 31.6 pg (27.0-34.0); MEAN CORPUSCULAR HGB CONC 33.6 g/dL (33.0-35.0); MEAN PLATELET VOLUME 7.9 fL (7.4-11.0); MONOCYTES # (AUTO) 0.8 x10^3/uL (0.3-0.8); MONOCYTES % (AUTO) 8.5 % (0.0-13.0); NEUTROPHILS % (AUTO) 66.7 % (42.0-75.0); RED BLOOD COUNT 3.92 X10^6/uL (3.5-5.4); RED CELL DISTRIBUTION WIDTH 13.3 % (11.6-16.5)
[2022-05-18 03:58] LABS: ALANINE AMINOTRANSFERASE 55 Units/L (12-78); ALBUMIN 3.8 g/dL (3.4-5.0); ALKALINE PHOSPHATASE 81 Units/L (46-116); ASPARTATE AMINO TRANSFERASE 41 Units/L (15-37); BLOOD UREA NITROGEN 10 mg/dL (7-18); CHLORIDE 102 mmol/L (98-107); COR NA(FOR HYPERGLY) 136 mmol/L (136-145); SODIUM 136 mmol/L (136-145); TOTAL PROTEIN 6.5 g/dL (6.4-8.2); eGFR NON BLACK RACES > 60 (>60)
[2022-05-18] MEDS: ALBUMIN HUMAN 25%- 100 ML 100 ML IV SCH (10:13)
[2022-05-18] MEDS: HEMOCYTE-PLUS PO SCH (10:15)
[2022-05-18] MEDS: ZESTORETIC 20/25 MG PO SCH (10:15)
[2022-05-18] MEDS: FOLIC ACID TAB 1 MG PO SCH (10:15)
[2022-05-18] MEDS: SYNTHROID 125 mcg TAB PO SCH (10:15)
[2022-05-18] MEDS: PriLOSEC PO SCH (10:15)
[2022-05-18] MEDS: MOBIC TAB 15 MG PO SCH (10:16)
[2022-05-18] MEDS: TEKTURNA PO SCH (10:17)
[2022-05-18] MEDS: ROCEPHIN VIAL 1 GRAM 1 G in NS 100 ML IV 100 ML IV SCH (11:30)
[2022-05-18] MEDS: CRESTOR TAB 10 MG PO SCH (20:38)
[2022-05-19] MEDS: D5W 1,000 ML IV 1,000 ML IV SCH ×3 (03:19→22:44)
[2022-05-19 06:36] LABS: BASOPHILS % (AUTO) 0.4 % (0.2-1.0); EOSINOPHILS # (AUTO) 0.2 x10^3/uL (0.0-0.2); EOSINOPHILS % (AUTO) 1.9 % (0.9-2.9); HEMATOCRIT 35.6 % (36.0-47.0); HEMOGLOBIN 12.1 g/dL (12.0-16.0); LYMPHOCYTES # (AUTO) 1.8 X10^3/uL (1.3-2.9); LYMPHOCYTES % (AUTO) 21.4 % (21.0-51.0); MEAN CORPUSCULAR HEMOGLOBIN 32.3 pg (27.0-34.0); MEAN CORPUSCULAR HGB CONC 34.1 g/dL (33.0-35.0); MEAN CORPUSCULAR VOLUME 94.8 fL (80.0-100.0); MEAN PLATELET VOLUME 8.7 fL (7.4-11.0); MONOCYTES # (AUTO) 0.8 x10^3/uL (0.3-0.8); MONOCYTES % (AUTO) 9.5 % (0.0-13.0); NEUTROPHILS # (AUTO) 5.5 x10^3/uL (2.2-4.8); NEUTROPHILS % (AUTO) 66.8 % (42.0-75.0); RED BLOOD COUNT 3.75 X10^6/uL (3.5-5.4); RED CELL DISTRIBUTION WIDTH 13.2 % (11.6-16.5); WHITE BLOOD COUNT 8.3 X10^3/uL (3.6-10.0)
[2022-05-19 06:38] LABS: ALANINE AMINOTRANSFERASE 54 Units/L (12-78); ALBUMIN 4.1 g/dL (3.4-5.0); ALKALINE PHOSPHATASE 79 Units/L (46-116); ASPARTATE AMINO TRANSFERASE 47 Units/L (15-37); BLOOD UREA NITROGEN 8 mg/dL (7-18); CALCIUM 9.3 mg/dL (8.5-10.1); CARBON DIOXIDE 26.8 mmol/L (21-32); CHLORIDE 99 mmol/L (98-107); CREATININE 0.63 mg/dL (0.55-1.02); SODIUM 132 mmol/L (136-145); TOTAL PROTEIN 6.9 g/dL (6.4-8.2); eGFR NON BLACK RACES > 60 (>60)
[2022-05-19] MEDS: ALBUMIN HUMAN 25%- 100 ML 100 ML IV SCH (08:40)
[2022-05-19] MEDS: SYNTHROID 125 mcg TAB PO SCH (08:41)
[2022-05-19] MEDS: PriLOSEC PO SCH (08:41)
[2022-05-19] MEDS: FOLIC ACID TAB 1 MG PO SCH (08:42)
[2022-05-19] MEDS: HEMOCYTE-PLUS PO SCH (08:42)
[2022-05-19] MEDS: MOBIC TAB 15 MG PO SCH (08:42)
[2022-05-19] MEDS: ZESTORETIC 20/25 MG PO SCH (08:42)
[2022-05-19] MEDS: TEKTURNA PO SCH (08:43)
[2022-05-19] MEDS: ROCEPHIN VIAL 1 GRAM 1 G in NS 100 ML IV 100 ML IV SCH (10:00)
--- NOTE | 2022-05-19 10:17 | PCM.PROG ---
Progress Note - Progress Note for Day of Date of Exam: 05/18/22 - Subjective Subjective: WAS ADMITTED TO THE HOSPITAL FOR TREATMENT OF VOLUME DEPLETION, PROTEIN-CALORIE MALNUTRITION, UTI, HYPERNATREMIA, HYPOALBUMINEMIA, AND FAILURE TO THRIVE. TODAY, SHE IS LYING IN BED WITH EYES CLOSED ON MORNING ROUNDS. SHE AWAKENS TO TACTILE STIMULATION. PATIENT IS DISORIENTED, BUT SPEAKS WHEN SPOKEN TO. ON EXAMINATION, HEART IS REGULAR IN RATE AND RHYTHM. BILATERAL LUNGS ARE NOTED WITH DIMINISHED LUNG SOUNDS THROUGHOUT. ABDOMEN IS FLAT, SOFT, AND NON-TENDER WITH NORMAL BOWEL SOUNDS NOTED IN ALL QUADRANTS. GENERALIZED MUSCLE ATROPHY NOTED. HER VITALS THIS MORNING ARE: 97.1-86-20-100%-139/73. LABS WERE OBTAINED. WBC 9.0, HGB 12.4, HCT 36.9, PLT COUNT 167, SODIUM 136, POTASSIUM 4.0, CHLORIDE 102, BUN 10, CREATININE 0.70, GLUCOSE 111, CALCIUM 9.0, AST 41, ALT 55, ALK PHOS 81, TOTAL PROTEIN 6.5, ALBUMIN 3.8. URINE CULTURE IS POSITIVE FOR GROWTH OF E.COLI. SHE IS CURRENTLY RECEIVING D5W AT 80 ML/HR, ROCEPHIN 1G IV DAILY, ALBUMIN 25% IV DAILY, THE POTASSIUM AND MAGNESIUM PROTOCOLS, AND HER HOME MEDICATIONS WERE RESUMED. OTHERWISE, WE PLAN TO FOLLOW-UP WITH AM LABS AND CONTINUE TO MONITOR. WHEN PATIENT IS READY FOR DISCHARGE, FAMILY REQUEST THAT SHE BE SENT HOME UNDER THE CARE OF HOSPICE. CASE MANAGEMENT WILL MAKE ARRANGEMENTS. TIME SPENT ON CLINICAL ASSESSMENT, REVIEWING LABS AND IMAGING, DECISION MAKING, AND DOCUMENTATION GREATER THAN 45 MINUTES. - Past Medical Family Social History Past Med/Fam/Surg Hx: No changes since H&P Allergies: Allergies No Known Drug Allergies Allergy (Verified 05/15/22 14:09) - Review of Systems ROS: No change since H&P - Vital Signs and I&O's Vital Signs: Temperature 98.4 F Pulse Rate [Right Radial] 102 Pulse Rate 112 Respiratory Rate 20 Blood Pressure [Right Arm] 139/77 Blood Pressure 93/73 O2 Sat by Pulse Oximetry 98 Intake and Output: Intake & Output 05/16/22 05/17/22 05/18/22 05/19/22 11:59 11:59 11:59 11:59 Intake Total 1047 / 1047 2185 / 2185 1300 / 1300 2255 / 2255 Output Total 100 / 100 1875 / 1875 2525 / 2525 1999 / 1999 Balance 947 / 947 310 / 310 -1225 / -1225 255 / 255 - Physical Exam Oriented: Person Eyes: Normal Ear: Normal Nose: Normal Throat: Normal Respiratory: Generalized, Diminished Cardiovascular: Normal : Hematuria Auscultation: Bowel Sounds: Normal Tenderness: Normal Skin: Decreased Turgur Musculoskeletal: Normal Psychiatric: Normal Mood Description: Calm Affect: Flat Speech Pattern: Clear - Laboratory and Diagnostics Result Diagrams: 05/19/22 05:55 05/19/22 05:55 Labs: 05/15/22 14:07 Urine,Catheterized Urine Culture - Final Escherichia Coli Laboratory WBC 8.3 X10^3/uL (3.6-10.0) 05/19/22 05:55 RBC 3.75 X10^6/uL (3.5-5.4) 05/19/22 05:55 Hgb 12.1 g/dL (12.0-16.0) 05/19/22 05:55 Hct 35.6 % (36.0-47.0) L 05/19/22 05:55 MCV 94.8 fL (80.0-100.0) 05/19/22 05:55 MCH 32.3 pg (27.0-34.0) 05/19/22 05:55 MCHC 34.1 g/dL (33.0-35.0) 05/19/22 05:55 RDW 13.2 % (11.6-16.5) 05/19/22 05:55 Plt Count 154 X10^3/uL (150.0-450.0) 05/19/22 05:55 MPV 8.7 fL (7.4-11.0) 05/19/22 05:55 Neut % (Auto) 66.8 % (42.0-75.0) 05/19/22 05:55 Lymph % (Auto) 21.4 % (21.0-51.0) 05/19/22 05:55 [place] % (Auto) 9.5 % (0.0-13.0) 05/19/22 05:55 Eos % (Auto) 1.9 % (0.9-2.9) 05/19/22 05:55 Baso % (Auto) 0.4 % (0.2-1.0) 05/19/22 05:55 Neut # (Auto) 5.5 x10^3/uL (2.2-4.8) H 05/19/22 05:55 Lymph # (Auto) 1.8 X10^3/uL (1.3-2.9) 05/19/22 05:55 [place] # (Auto) 0.8 x10^3/uL (0.3-0.8) 05/19/22 05:55 Eos # (Auto) 0.2 x10^3/uL (0.0-0.2) 05/19/22 05:55 Baso # (Auto) 0.0 X10^3/uL (0.0-0.1) 05/19/22 05:55 Absolute Nucleated RBC 0.0 /100WBC 05/19/22 05:55 Sodium 132 mmol/L (136-145) L 05/19/22 05:55 Corrected Sodium TNP 05/19/22 05:55 Potassium 4.4 mmol/L (3.5-5.1) 05/19/22 05:55 Chloride 99 mmol/L (98-107) 05/19/22 05:55 Carbon Dioxide 26.8 mmol/L (21-32) 05/19/22 05:55 BUN 8 mg/dL (7-18) 05/19/22 05:55 Creatinine 0.63 mg/dL (0.55-1.02) 05/19/22 05:55 Est GFR (MDRD) Af Amer > 60 (>60) 05/19/22 05:55 Est GFR (MDRD) Non-Af > 60 (>60) 05/19/22 05:55 Glucose 104 mg/dL (65-99) H 05/19/22 05:55 POC Glucose (mg/dL) 99 mg/dL (65-99) 05/19/22 05:16 Calcium 9.3 mg/dL (8.5-10.1) 05/19/22 05:55 Corrected Calcium TNP 05/19/22 05:55 Magnesium 2.4 mg/dL (1.7-2.9) 05/17/22 06:00 Total Bilirubin 0.70 mg/dL (0.2-1.0) 05/19/22 05:55 AST 47 Units/L (15-37) H 05/19/22 05:55 ALT 54 Units/L (12-78) 05/19/22 05:55 Alkaline Phosphatase 79 Units/L (46-116) 05/19/22 05:55 Troponin I High Sens 58.7 ng/L (4.0-60.0) 05/16/22 05:55 Total Protein 6.9 g/dL (6.4-8.2) 05/19/22 05:55 Albumin 4.1 g/dL (3.4-5.0) 05/19/22 05:55 Globulin 2.8 g/dL (2.5-4.5) 05/19/22 05:55 Albumin/Globulin Ratio 1.5 Ratio (1.1-2.1) 05/19/22 05:55 Lipase 101 Units/L (73-393) 05/15/22 13:50 Specimen Type Catherized urine 05/15/22 14:07 Urine Color Yellow (YELLOW) 05/15/22 14:07 Urine Appearance Cloudy (CLEAR) 05/15/22 14:07 Urine pH 6.0 (5.0 - 8.0) 05/15/22 14:07 Ur Specific [place] 1.030 (1.000-1.030) 05/15/22 14:07 Urine Protein 2+ (NEGATIVE) 05/15/22 14:07 Urine Glucose (UA) Negative (NEGATIVE) 05/15/22 14:07 Urine Ketones 2+ (NEGATIVE) 05/15/22 14:07 Urine Blood 4+ (NEGATIVE) 05/15/22 14:07 Urine Nitrite Negative (NEGATIVE) 05/15/22 14:07 Urine Bilirubin Negative (NEGATIVE) 05/15/22 14:07 Urine Urobilinogen 1+ (NORMAL) 05/15/22 14:07 Ur Leukocyte Esterase 1+ (NEGATIVE) 05/15/22 14:07 Urine RBC 10-20 /HPF (0-3) A 05/15/22 14:07 Urine WBC 0-2 /HPF (0-5) 05/15/22 14:07 Ur Squamous Epith Cells Negative /HPF (NEGATIVE) 05/15/22 14:07 Urine Bacteria 4+ /HPF (NEGATIVE) 05/15/22 14:07 Ur Culture Indicated? Yes/culture set up 05/15/22 14:07 - Plan (1) Hypernatremia Status: Acute Plan: D5W AT 80 ML/HR, ROCEPHIN 1G IV DAILY, ALBUMIN 25% IV DAILY, THE POTASSIUM AND MAGNESIUM PROTOCOLS, AND HER HOME MEDICATIONS WERE RESUMED. (2) Protein calorie malnutrition Status: Acute Qualifiers: Protein-calorie malnutrition severity: mild Qualified Code(s): E44.1 - Mild protein-calorie malnutrition (3) Acute UTI Status: Acute (4) Volume depletion Status: Acute (5) Hypoalbuminemia Status: Acute (6) Failure to thrive Status: Acute Qualifiers: Failure to thrive age range: in adult Qualified Code(s): R62.7 - Adult failure to thrive
[2022-05-19] MEDS: CRESTOR TAB 10 MG PO SCH (20:48)
[2022-05-20] MEDS: D5W 1,000 ML IV 1,000 ML IV SCH (05:47)
[2022-05-20 05:53] LABS: BASOPHILS % (AUTO) 0.7 % (0.2-1.0); EOSINOPHILS # (AUTO) 0.2 x10^3/uL (0.0-0.2); EOSINOPHILS % (AUTO) 2.8 % (0.9-2.9); HEMATOCRIT 34.2 % (36.0-47.0); HEMOGLOBIN 11.5 g/dL (12.0-16.0); LYMPHOCYTES # (AUTO) 1.6 X10^3/uL (1.3-2.9); MEAN CORPUSCULAR HEMOGLOBIN 31.8 pg (27.0-34.0); MEAN CORPUSCULAR HGB CONC 33.7 g/dL (33.0-35.0); MEAN CORPUSCULAR VOLUME 94.2 fL (80.0-100.0); MEAN PLATELET VOLUME 7.4 fL (7.4-11.0); MONOCYTES # (AUTO) 0.6 x10^3/uL (0.3-0.8); MONOCYTES % (AUTO) 9.8 % (0.0-13.0); NEUTROPHILS # (AUTO) 3.9 x10^3/uL (2.2-4.8); NEUTROPHILS % (AUTO) 61.7 % (42.0-75.0); RED BLOOD COUNT 3.63 X10^6/uL (3.5-5.4); RED CELL DISTRIBUTION WIDTH 13.2 % (11.6-16.5); WHITE BLOOD COUNT 6.3 X10^3/uL (3.6-10.0)
[2022-05-20 06:20] LABS: ALANINE AMINOTRANSFERASE 49 Units/L (12-78); ALBUMIN 4.4 g/dL (3.4-5.0); ALKALINE PHOSPHATASE 79 Units/L (46-116); ASPARTATE AMINO TRANSFERASE 25 Units/L (15-37); BLOOD UREA NITROGEN 11 mg/dL (7-18); CALCIUM 9.4 mg/dL (8.5-10.1); CARBON DIOXIDE 30.8 mmol/L (21-32); CHLORIDE 98 mmol/L (98-107); CREATININE 0.75 mg/dL (0.55-1.02); SODIUM 135 mmol/L (136-145); TOTAL PROTEIN 6.9 g/dL (6.4-8.2); eGFR NON BLACK RACES > 60 (>60)
[2022-05-20] MEDS: ROCEPHIN VIAL 1 GRAM 1 G in NS 100 ML IV 100 ML IV SCH (08:30)
[2022-05-20] MEDS: ALBUMIN HUMAN 25%- 100 ML 100 ML IV SCH (09:42)
[2022-05-20] MEDS: PriLOSEC PO SCH (09:44)
[2022-05-20] MEDS: FOLIC ACID TAB 1 MG PO SCH (09:44)
[2022-05-20] MEDS: ZESTORETIC 20/25 MG PO SCH (09:44)
[2022-05-20] MEDS: HEMOCYTE-PLUS PO SCH (09:45)
[2022-05-20] MEDS: TEKTURNA PO SCH (09:45)
[2022-05-20] MEDS: SYNTHROID 125 mcg TAB PO SCH (09:45)
[2022-05-20] MEDS: MOBIC TAB 15 MG PO SCH (09:45)
[2022-05-20 14:35] VITALS: BP 151/65
== END 2022-05-20 12:40 | disposition hospice, home (50) ==
LOC: MED/SURG 13:27 → ER 13:27 → MED/SURG 17:28
PROVIDERS: ADMIT Internal Medicine; ATTEND Internal Medicine
DX: R53.1 Weakness; E86.9 Volume depletion, unspecified; E03.8 Other specified hypothyroidism; J44.9 Chronic obstructive pulmonary disease, unspecified; I10 Essential (primary) hypertension; B96.29 Other Escherichia coli [E. coli] as the cause of diseases classified elsewhere; E78.2 Mixed hyperlipidemia; N39.0 Urinary tract infection, site not specified; K44.9 Diaphragmatic hernia without obstruction or gangrene; R62.7 Adult failure to thrive; R41.82 Altered mental status, unspecified; K21.9 Gastro-esophageal reflux disease without esophagitis; R77.8 Other specified abnormalities of plasma proteins; E87.0 Hyperosmolality and hypernatremia; E11.65 Type 2 diabetes mellitus with hyperglycemia